=== PATIENT | female | born 1945 | race Caucasian/White ===

== ENCOUNTER → 2016-06-27 | Outpatient (CLI) | payer MEDICARE, BC ==
--- NOTE | 2016-06-27 13:33 | RADRPT ---
PROCEDURE: US Abdomen Complete. CLINICAL INDICATION: ABD PAIN TECHNIQUE: Multiple real-time images were acquired of the patient's abdomen and retroperitoneum ut ilizing a high resolution transducer. COMPARISON: None FINDINGS: The liver measures 13.3 cm and demonstrates moderately increased echogenicity. There is no intrahepa tic biliary ductal dilatation. The extrahepatic common bile duct measures 5 mm. The main portal vein is patent with proper directional flow. The gallbladder is without stones, wall thickening, or pericholecystic fluid. The visualized pancreas is unremarkable. The spleen measures 6.2 cm. The right kidney measures 9.9 cm. The left kidney measures 9.8 cm. There is mild bilateral hydroneph rosis. There is a 1.5 cm simple cyst in the lower pole of the left kidney. There is a 2.2 cm simple cyst in the upper pole of the right kidney. The visualized abdominal aorta and IVC are grossly unremarkable. IMPRESSION: Mild bilateral hydronephrosis. Simple bilateral renal cysts measuring up to 1.5 cm on the left and 2.2 cm on the right. Moderate fatty infiltration of the liver. No cholelithiasis or acute cholecystitis. Normal CBD. RPTAT: EE Physician Hal Date Time Electronically viewed and signed by Physician Hal on 06/27/2016 13:33 /
== END | disposition home or self-care (01) ==
LOC: U/S 11:08
PROVIDERS: ATTEND Internal Medicine
DX: N13.30 Unspecified hydronephrosis (principal); R10.9 Unspecified abdominal pain; N28.1 Cyst of kidney, acquired; K76.0 Fatty (change of) liver, not elsewhere classified
CPT/HCPCS: 76700